=== PATIENT | female | born 1995 | race Caucasian/White ===

== ENCOUNTER 2020-11-08 10:00 | Outpatient (CLI) | payer OTHER ==
[2020-11-08] MEDS ORDERED: LACTATED RINGERS 1,000 ML IV SCH (11:00)
[2020-11-08 11:10] VITALS: BP 126/81; RESP 16; TEMP 96.6
[2020-11-08 12:10] VITALS: PULSE 100
--- NOTE | 2020-12-14 08:01 | P.MSEPDOC ---
Presenting Problems - Arrival Data Date of Arrival on Unit: 11/08/20 Time of Arrival on Unit: 10:00 Mode of Transport: Ambulatory - Complaint OB-Reason for Admission/Chief Complaint: Observation/Evaluation Comment: Brown discharge and cramping yesterday Medical History - Information : 1 Para: 0 - Gestational Age Gestational Age by YOLANDE (wks/days): 34 Weeks and 5 Days Review of Systems - Review of Systems Constitutional: No problems Breast: No problems ENT: No problems Cardiovascular: No problems Respiratory: No problems Gastrointestinal: No problems Genitourinary: No problems Musculoskeletal: No problems Neurological: No problems Skin: No problems Vital Signs - Temperature Temperature: 96.6 F Temperature Source: Temporal Artery Scan - Pulse Right Brachial Pulse Rate: 100 Pulse Assessment Method: Automatic Cuff - Respirations Respiratory Rate: 16 Oxygen Delivery Method: Room Air - Blood Pressure Right Arm Sitting Blood Pressure: 126/81 Blood Pressure Mean: 96 Blood Pressure Source: Automatic Cuff Medical Screen Scoring (Pre) - Cervical Exam Dilation: 0 cm = 0 Membranes: Intact - Uterine Contractions Frequency: < 36 weeks = 6 - Maternal Vital Signs Maternal Temperature: N/A Maternal Blood Pressure: N/A Signs of Preeclampsia: N/A Maternal Respirations: N/A - Maternal Trauma Maternal Trauma: N/A - Assessment - Baby A Baseline FHR: 140 Heart Rate - NICHD Category: Category I (Normal) = 0 NST: Reactive Position: N/A Station: N/A - Total Score - Baby A Total Score - Baby A: 6 - Total Score - Baby B Total Score - Baby B: 6 - Total Score - Baby C Total Score - Baby C: 6 - Level of Risk - Baby A Level of Risk - Baby A: Medium (6-9) - Level of Risk - Baby B Level of Risk - Baby B: Medium (6-9) - Level of Risk - Baby C Level of Risk - Baby C: Medium (6-9) Physician Notification (Pre) - Physician Notified Physician Notified Date: 11/08/20 Physician Notified Time: 10:45 New Order Received: Yes - Notification Comment Comment: Lily Kennedy, advsd , 34 5/7, c/o brown discharge yesterday with. cramping and more discharge today. Sterile spec exam, no discharge noted, FFN collected,. SVE closed, 50%, firm, contractions on monitor q2-3 min, pt denies pain or feeling. contractions. States to infuse 1L LR and send FFN, if FFN neg, pt may be discharge home. Medical Screen Scoring (Post) - Uterine Contractions Frequency: > 5 minutes apart = 1 - Maternal Vital Signs Maternal Temperature: N/A Maternal Blood Pressure: N/A Signs of Preeclampsia: N/A Maternal Respirations: N/A - Pain Assessment Pain Scale Used: Numeric (1 - 10) Pain Intensity: 0 - Maternal Trauma Maternal Trauma: N/A - Assessment - Baby A Heart Rate: 140 Heart Rate - NICHD Category: Category I (Normal) = 0 NST: Reactive Position: N/A Station: N/A - Total Score Total Score - Baby A: 1 Total Score - Baby B: 1 Total Score - Baby C: 1 - Post Treatment Level of Risk Post Treatment Level of Risk - Baby A: Low (0-5) Post Treatment Level of Risk - Baby B: Low (0-5) Post Treatment Level of Risk - Baby C: Low (0-5) Physician Notification (Post) - Notification Comment Comment: Order per Dr. Bautista to d/c pt to home if FFN NEGATIVE. FFN NEGATIVE result recieved. Disposition - Disposition OB Disposition: Physician follow up in office, Discharge to home Discharge Date: 11/08/20 Discharge Time: 12:04 I agree with the RN Medical Screening Exam: Yes Case reviewed; plan agreed upon as documented in EMR&OBIX.: Yes Comments: Patient was neither seen nor examined by me Diagnosis: FALSE LABOR BEFORE 37 COMPLETED WEEKS OF GEST, THIRD TRI
== END 2020-11-08 12:04 | disposition home or self-care (01) ==
LOC: FBPOP 10:00
PROVIDERS: ATTEND Obstetrics & Gynecology
DX: O47.03 False labor before 37 completed weeks of gestation, third trimester (principal); Z3A.34 34 weeks gestation of pregnancy
CPT/HCPCS: 59025; 82731; 96360; 99214

== ENCOUNTER 2020-12-13 06:07 | Inpatient (IN) | payer OTHER ==
[2020-12-13] MEDS ORDERED: TERBUTALINE 1 MG/ML VIAL SQ PRN (06:20)
[2020-12-13] MEDS ORDERED: LIDOCAINE 0.5% (PF) 5 MG/ML (50 ML SDV) SQ PRN (06:20)
[2020-12-13] MEDS ORDERED: METHYLERGONOVINE 0.2 MG/ML 1 ML AMP IM PRN (06:20)
[2020-12-13] MEDS ORDERED: OXYTOCIN 10 UNIT/ML 1 ML VIAL IM PRN (06:20)
[2020-12-13] MEDS ORDERED: CARBOPROST TROMETHAMINE 250 MCG/ML 1 ML AMP IM PRN (06:20)
[2020-12-13] MEDS: LACTATED RINGERS 1,000 ML IV SCH ×3 (06:29→19:14)
[2020-12-13] MEDS ORDERED: LACTATED RINGERS 1,000 ML IV SCH (06:30)
[2020-12-13] MEDS ORDERED: OXYTOCIN 30 UNITS/500 ML NS 30 UNIT in SALINE 1 500ML.BAG IV SCH (06:30)
[2020-12-13 06:36] LABS: Basophils # (A) 0.1 k/uL (0-0.2); Basophils % (A) 0 %; Eosinophils # (A) 0.2 k/uL (0-0.7); Eosinophils % (A) 1 %; HGB 13.6 gm/dL (11.4-16.0); Lymphocytes # (A) 1.9 k/uL (1.0-4.8); Lymphocytes % (A) 16 %; MCH 31.1 pg (25.0-35.0); MCHC 33.9 g/dL (31.0-37.0); MCV 91.7 fL (80.0-100.0); Mean Platelet Volume 7.5; Monocytes # (A) 0.6 k/uL (0-1.0); Monocytes % (A) 5 %; Neutrophils # (A) 9.2 k/uL (1.3-7.7); Neutrophils % (A) 77 %; Platelet Count 282 k/uL (150-450); RBC 4.36 m/uL (3.80-5.40); RDW 14.4 % (11.5-15.5)
--- NOTE | 2020-12-13 07:50 | P.HPOB ---
History of Present Illness H&P Date: 12/13/20 This is a 25-year-old white female 1 para 0 EDC 12/15/2020 at 39-4/7 weeks' gestation. Patient presents today for induction with reasonably favorable cervix. has been unremarkable, group B strep cultures negative, blood type A+, rubella status immune. She admits to occasional mild uterine contractions today. She denies fluid leakage or vaginal bleeding. Fetus is been active throughout the . history significant for blood type A+, rubella status immune. H epatitis B surface antigen, HIV testing, urine culture, gonorrhea and chlamydia cultures, group B strep cultures all negative. One-hour Glucola 135. Past surgical history is negative. Past medical history significant for childhood asthma, no issues as an adult. ALLERGIES none known. Social history patient is , she has never been a smoker, she denies alcohol or drug use. On exam patient is 5 foot 3 inches, 151 pounds, admitting blood pressure 140/93, pulse 101, patient is afebrile. The general physical exam is within normal limits. The chest is clear in all mata. Extremities reveal no edema. Cervix is 3 cm dilated, 80% effaced, anterior, soft, -2 station. Artificial amnior rhexis reveals clear fluid. heart tones are in the 140s with frequent accelerations consistent with reactive NST. Patient is having spontaneous contractions approximately every 2-5 minutes apart better mild. Impression: 39-4/7 weeks intrauterine , here for induction of labor, all signs reassuring. Plan: Continue close maternal and surveillance. Oxytocin per hospital protocol. Anticipating normal spontaneous vaginal delivery. Analgesic options reviewed in detail with the patient. Review of Systems Constitutional: Reports as per HPI Past Medical History Past Medical History: Asthma History of Any Multi-Drug Resistant Organisms: None Reported Past Surgical History: No Surgical Hx Reported Past Anesthesia/Blood Transfusion Reactions: No Reported Reaction Past Psychological History: No Psychological Hx Reported Smoking Status: Never smoker Past Alcohol Use History: None Reported Past Drug Use History: None Reported - Past Family History Father Family Medical History: No Reported History Medications and Allergies Home Medications Medication Instructions Recorded Confirmed Type Aspirin [Adult Low Dose Aspirin EC] 81 mg PO DAILY 11/08/20 12/13/20 History 78/Iron/Folate 1/Dha 1 tab PO ONCE 12/13/20 12/13/20 History [Prenate Dha Softgel] Allergies Allergy/AdvReac Type Severity Reaction Status Date / Time No Known Allergies Allergy Verified 12/13/20 06:19 Exam Vital Signs Temp Pulse Resp BP Pulse Ox 12/13/20 06:18 96.8 F L 101 H 16 140/93 98 Intake and Output 12/12/20 12/13/20 12/13/20 22:59 06:59 14:59 Other: Weight 68.492 kg See dictation under HPI please Results Result Diagrams: 12/13/20 06:28 Abnormal Lab Results - Last 24 Hours (Table) 12/13/20 Range/Units 06:28 WBC 12.0 H (3.8-10.6) k/uL Neutrophils # 9.2 H (1.3-7.7) k/uL Assessment and Plan Assessment: 39-4/7 weeks intrauterine , here for induction of labor, all signs reassuring. Plan: Close maternal and surveillance. Oxytocin per hospital protocol. Analgesic options reviewed with the patient and understanding voiced. Anticipate normal spontaneous vaginal delivery. Time with Patient: Less than 30
[2020-12-13] MEDS ORDERED: fentaNYL (PF) 50 MCG/ML 5 ML AMP ONE (14:01)
[2020-12-13] MEDS ORDERED: SODIUM CHLORIDE 0.9% 100 ML BAG ONE (14:01)
[2020-12-13] MEDS ORDERED: ROPIVACAINE 5MG/ML 20ML VIAL ONE (14:01)
[2020-12-13] MEDS ORDERED: ZOLPIDEM 5 MG TAB PO PRN (21:55)
[2020-12-13] MEDS ORDERED: ACETAMINOPHEN TAB 325 MG TAB PO PRN (21:55)
[2020-12-13] MEDS ORDERED: SIMETHICONE 80 MG CHEWABLE PO PRN (21:55)
[2020-12-13] MEDS ORDERED: LANOLIN CREAM 5 GM TUBE TOPICAL PRN (21:55)
[2020-12-13] MEDS ORDERED: BENZOCAINE/MENTHOL SPRAY 1 GM/SPRAY AEROSOL TOPICAL PRN (21:55)
[2020-12-13] MEDS ORDERED: diphenhydrAMINE 25 MG CAP PO PRN (21:55)
[2020-12-13] MEDS ORDERED: diphenhydrAMINE 50 MG CAP PO PRN (21:55)
[2020-12-13] MEDS ORDERED: diphenhydrAMINE ELIXIR 25 MG/10 ML CUP PO PRN (21:55)
[2020-12-13] MEDS ORDERED: diphenhydrAMINE 50 MG/ML 1 ML VIAL IVP PRN ×2 (21:55)
[2020-12-13] MEDS ORDERED: HYDROcodone/APAP 5-325MG 1 EACH TAB PO PRN (21:55)
[2020-12-13] MEDS ORDERED: HYDROCORTISONE 2.5% RECTAL CREAM 30 GM TUBE RECTAL PRN (21:55)
--- NOTE | 2020-12-13 21:55 | P.PROBDLV ---
Vaginal Delivery Note - . Vaginal Delivery Note: This is a 25-year-old white female 1 para 0 EDC 12/15/2020 at 39-4/7 weeks' gestation. Patient presented for induction with favorable cervix. Fetus is been active throughout the . Blood type A positive, rubella status immune, group B strep cultures negative. Please see dictated history and physical for details. Artificial amniorrhexis revealed clear fluid. Oxytocin was started and titrated per hospital protocol. Epidural was placed per her request. Overall heart rate was very reassuring, however there were periods of late decelerations, most notably after epidural placement. Patient positioning changes were instituted, oxygen per facemask, and Pitocin discontinued. Ultimately the patient became complete dilated at 2054 hours and the second stage of labor began. Patient had excellent maternal expulsive efforts. Perineal body was prepped and draped in usual sterile fashion. 's head delivered occiput anterior and she restituted accordingly. There was a tight nuchal cord 1 that was reduced. The right or anterior shoulder was delivered from underneath the pubic symphysis at which time the oropharynx, nasopharynx, and external nares were all bulb suctioned on the perineal body. Patient was officially delivered of a liveborn female infant at 2134 hours. Umbilical cord was doubly clamped and ligated. Placenta delivered spontaneously, it was inspected and noted to be intact with trivascular cord at 2137 hours. At this time the uterus was massaged. Bleeding was initially brisk, Methergine IM was given 1 with excellent and immediate results. Careful inspection of the cervix, vagina, perineum, periurethral, and perirectal areas revealed a very small midline first-degree laceration easily repaired with a single [id number]-[id number] of 3-0 Rapide suture. Fundus is firm now and in the midline, symmetric and 18 week size. Estimated blood loss 300 mL's. All sponge needle and enhancement counts are correct at the end of the procedure. Infant weighed 7 lbs. 7 oz. or 3390 g. Patient and her were allowed to begin the bonding experience in the LDR.
[2020-12-13] MEDS: IBUPROFEN 600 MG TAB PO PRN (23:35)
--- NOTE | 2020-12-14 07:41 | P.DS ---
Providers Date of admission: 12/13/20 06:07 Expected date of discharge: 12/14/20 Attending physician: Elena Bautista Primary care physician: Stated None Hospital Course: This is a 25-year-old female 1 para 0 EDC 12/15/2020 at 39-4/7 weeks' gestation who presented for induction with favorable cervix. is remarkable for blood type A+, rubella status immune, group B strep cultures negative. Please see dictated history and physical for details. Epidural was placed per patient's request and oxytocin was started and titrated. Patient went on to deliver vaginally a liveborn female infant with scores of 7 and 8 at one and 5 minutes respectively. There was a tight nuchal cord that was reduced, a small first-degree perineal laceration easily repaired, and an estimated blood loss of 300 mL's. weighed 7 lbs. 7 oz. or 3390 g. Please see my dictated delivery note for details. This morning breast-feeding is going well. Pain is well managed with ibuprofen. Patient is voiding, ambulating, passing flatus without difficulty. Vital signs are stable and she has remained afebrile. [place] infant is doing well. Patient is tired, but otherwise judged to be in very good condition for discharge home. She will follow-up with me in the office in 6 weeks. I have reminded her no intercourse, tampons or douching. She will use [id number] ibuprofen products as needed for pain. I've asked her to call with any fevers shakes or chills, foul smelling or copious lochia, with the passage of large blood clots, with any pain not alleviated by nsjw-axl-goikdyt products, or indeed with any concerns. Assessment: Doing well day #1 Patient Condition at Discharge: Good Plan - Discharge Summary New Discharge Prescriptions: No Action Aspirin [Adult Low Dose Aspirin EC] 81 mg PO DAILY 78/Iron/Folate 1/Dha [Prenate Dha Softgel] 1 tab PO ONCE Discharge Medication List Aspirin [Adult Low Dose Aspirin EC] 81 mg PO DAILY 11/08/20 [History] 78/Iron/Folate 1/Dha [Prenate Dha Softgel] 1 tab PO ONCE 12/13/20 [History]
[2020-12-14] MEDS ORDERED: SENNOSIDES-DOCUSATE SODIUM 1 EACH TAB PO SCH (08:00)
[2020-12-14] MEDS: IBUPROFEN 600 MG TAB PO PRN (10:46)
[2020-12-14 16:00] VITALS: BP 126/84; PULSE 110; RESP 18; TEMP 98
== END 2020-12-14 22:30 | disposition home or self-care (01) | DRG 807 ==
LOC: 4FBP 06:07
PROVIDERS: ADMIT Obstetrics & Gynecology; ATTEND Obstetrics & Gynecology
PROC: 10E0XZZ Delivery of Products of Conception, External Approach (ICD-10-PCS; principal; 2020-12-13)
PROC: 0HQ9XZZ Repair Perineum Skin, External Approach (ICD-10-PCS; 2020-12-13)
PROC: 3E033VJ Introduction of Other Hormone into Peripheral Vein, Percutaneous Approach (ICD-10-PCS; 2020-12-13)
PROC: 10907ZC Drainage of Amniotic Fluid, Therapeutic from Products of Conception, Via Natural or Artificial Opening (ICD-10-PCS; 2020-12-13)
PROC: 3E0R3BZ Introduction of Anesthetic Agent into Spinal Canal, Percutaneous Approach (ICD-10-PCS; 2020-12-13)
DX: O69.1XX0 Labor and delivery complicated by cord around neck, with compression, not applicable or unspecified (principal); Z37.0 Single live birth; O76 Abnormality in fetal heart rate and rhythm complicating labor and delivery; O70.0 First degree perineal laceration during delivery; O99.52 Diseases of the respiratory system complicating childbirth; J45.909 Unspecified asthma, uncomplicated; Z3A.39 39 weeks gestation of pregnancy; Z79.82 Long term (current) use of aspirin; Z79.899 Other long term (current) drug therapy
CPT/HCPCS: 85025; 86850; 86900; 86901

== ENCOUNTER 2023-01-31 08:01 | Observation (INO) | payer OTHER ==
[2023-01-31] MEDS ORDERED: KETOROLAC 15 MG/ML 1 ML VIAL IVP STA (08:58)
[2023-01-31] MEDS ORDERED: BUTORPHANOL 1 MG/ML 1 ML VIAL IV ONE (09:09)
[2023-01-31] MEDS: LACTATED RINGERS 1,000 ML IV ONE ×2 (09:28→10:15)
[2023-01-31 09:31] LABS: Basophils % (A) 0 %; Eosinophils % (A) 0 %; HCT 30.9 % (34.0-46.0); HGB 10.5 gm/dL (11.4-16.0); Lymphocytes # (A) 0.7 k/uL (1.0-4.8); Lymphocytes % (A) 5 %; MCH 28.5 pg (25.0-35.0); MCV 83.8 fL (80.0-100.0); Mean Platelet Volume 7.7; Monocytes # (A) 0.3 k/uL (0-1.0); Monocytes % (A) 2 %; Neutrophils # (A) 12.9 k/uL (1.3-7.7); Neutrophils % (A) 92 %; Platelet Count 343 k/uL (150-450); Poikilocytosis Slight; RBC 3.69 m/uL (3.80-5.40); RDW 14.1 % (11.5-15.5); WBC 14.1 k/uL (3.8-10.6)
[2023-01-31 09:40] LABS: ALT 14 U/L (4-34); AST 20 U/L (14-36); African American GFR (CKD) >90 (>60 ml/min/1.73 sqM); Albumin 3.3 g/dL (3.5-5.0); Alkaline Phosphatase 121 U/L (38-126); Anion Gap 8 mmol/L; Blood Urea Nitrogen 9 mg/dL (7-17); Calcium 8.7 mg/dL (8.4-10.2); Carbon Dioxide 22 mmol/L (22-30); Chloride 104 mmol/L (98-107); Glucose 100 mg/dL (74-99); Non-African American GFR(CKD) >90 (>60 ml/min/1.73 sqM); Potassium 4.2 mmol/L (3.5-5.1); Sodium 134 mmol/L (137-145); Total Bilirubin 0.4 mg/dL (0.2-1.3); Total Protein 6.2 g/dL (6.3-8.2)
[2023-01-31 09:46] LABS: Appearance,Urine Cloudy (Clear); Bacteria,Urine Rare /hpf; Bilirubin,Urine Negative (Negative); Blood,Urine Small (Negative); Color,Urine Yellow; Glucose,Urine (UA) Negative (Negative); Ketones,Urine 2+ (Negative); Leukocyte Esterase,Urine Large (Negative); Mucus,Urine Rare /hpf; Nitrite,Urine Negative (Negative); PH, Urine 6.5 (5.0-8.0); Protein,Urine Trace (Negative); RBC,Urine 39 /hpf (0-5); Specific Gravity,Urine 1.016 (1.001-1.035); Squamous Epithelial Cell,Urine 11 /hpf (0-4); Urobilinogen,Urine <2.0 mg/dL (<2.0); WBC,Urine 5 /hpf (0-5)
[2023-01-31] MEDS ORDERED: Acetaminophen-Codeine 300-30mg TAB PO STA (10:42)
[2023-01-31] MEDS ORDERED: ACETAMINOPHEN TAB 500 MG TAB PO STA (10:43)
--- NOTE | 2023-01-31 10:54 | US ---
EXAMINATION TYPE: US kidneys/renal and bladder DATE OF EXAM: 01/31/2023 COMPARISON: NONE CLINICAL HISTORY: severe lt upper quad. pain. 33 weeks gest. Severe left upper quadrant pain. Patie nt is 33 weeks . Left kidney scanned first. EXAM MEASUREMENTS: Right Kidney: 11.5 x 6.0 x 5.8 cm Left Kidney: 11.1 x 5.6 x 6.7 cm Right Kidney: Hydronephrosis seen. Hyperechoic focus seen lower pole: 0.3 x 0.5 x 0.4 cm. Left Kidney: Hydronephrosis seen. Hyperechoic focus seen lower pole: 0.8 x 0.4 x 0.4 cm. Bladder: Not well seen, not fully distended. Unable to properly evaluate. Bilateral Jets seen: No. IMPRESSION: There is bilateral mild/moderate hydronephrosis with bilateral nephrolithiasis.
[2023-01-31] MEDS: LACTATED RINGERS 1,000 ML IV SCH ×2 (12:39→15:01)
[2023-01-31] MEDS ORDERED: hydrOXYzine HCL 50 MG/ML 1 ML VIAL IM PRN (14:18)
[2023-01-31] MEDS ORDERED: HYDROmorphone PCA 10 MG/50 ML BAG IV PRN (16:39)
[2023-01-31] MEDS ORDERED: NALOXONE 0.4 MG/ML 1 ML VIAL IV PRN (16:39)
[2023-02-01] MEDS: LACTATED RINGERS 1,000 ML IV SCH ×2 (00:27→07:10)
[2023-02-01 03:30] VITALS: RESP 17
[2023-02-01 07:42] VITALS: BP 108/69; PULSE 112; TEMP 98.1
--- NOTE | 2023-02-01 09:45 | P.GSCN ---
History of Present Illness Consult date: 02/01/23 History of present illness: Pleasant 27-year-old female 2 para 1, 3 33 weeks . She presented with severe left flank pain. Dr. Bautista ordered an ultrasound identifying bilateral hydronephrosis. There are also apparent stones in each kidney, small. The patient was admitted for pain control. She had IV fluids. This is her first stone. She passed a stone early this morning. She is feeling much better. No family history of stones. There is no fever. The right-sided hydronephrosis is probably related. Review of Systems All systems: negative - Constitutional Denies fever, Denies weight loss - EENT Eyes: denies blurred vision Ears, nose, mouth and throat: Denies dysphagia - Cardiovascular Denies chest pain, Denies shortness of breath - Respiratory Denies cough, Denies 7 - Gastrointestinal Reports as per HPI - Genitourinary Genitourinary: Denies dysuria, Denies hematuria - Integumentary Denies rash, Denies unusual bruising - Neurological Denies headaches, Denies syncope - Hematologic/Lymphatic Denies easy bleeding, Denies easy bruising Past Medical History Past Medical History: Asthma History of Any Multi-Drug Resistant Organisms: None Reported Past Surgical History: No Surgical Hx Reported Past Anesthesia/Blood Transfusion Reactions: No Reported Reaction Past Psychological History: No Psychological Hx Reported Smoking Status: Never smoker Past Alcohol Use History: None Reported Past Drug Use History: None Reported - Past Family History Father Family Medical History: No Reported History Medications and Allergies Home Medications Medication Instructions Recorded Confirmed Type Pedi Multivit No.25/Folic Acid 1 tab PO DAILY 01/31/23 01/31/23 History [Flintstones Multivit Chew Tab] Allergies Allergy/AdvReac Type Severity Reaction Status Date / Time No Known Allergies Allergy Verified 01/31/23 08:27 Surgical - Exam Vital Signs Temp Pulse Resp BP Pulse Ox 97.8 F 116 H 18 114/66 98 01/31/23 18:00 01/31/23 18:00 01/31/23 18:00 01/31/23 18:00 01/31/23 18:00 - General well developed, well nourished, no distress - Eyes normal ocular movement, no icteric - ENT no hearing loss, no congestion - Neck no masses, trachea midline - Respiratory normal respiratory effort, clear to auscultation - Abdomen 33 weeks . Nontender flank Abdomen: soft, non tender, no guarding, no rigid, no rebound - Integumentary no rash, no abnormal pigmentation - Neurologic no disoriented, no combative - Psychiatric oriented to time, oriented to person, oriented to place, speech is normal, memory intact Results - Labs 01/31/23 09:15 01/31/23 09:15 Abnormal Lab Results - Last 24 Hours (Table) 01/31/23 Range/Units 09:15 Urine Appearance Cloudy H (Clear) Urine Protein Trace H (Negative) Urine Ketones 2+ H (Negative) Urine Blood Small H (Negative) Ur Leukocyte Esterase Large H (Negative) Urine RBC 39 H (0-5) /hpf Ur Squamous Epith Cells 11 H (0-4) /hpf Urine Bacteria Rare H (None) /hpf Urine Mucus Rare H (None) /hpf - Imaging US - abdomen: report reviewed Assessment and Plan Assessment: Impression: Left ureteral calculus, passed bilateral renal stones. Active . Recommendations: Nothing a urologic needs to be done at this point in time. After she delivers her baby she should follow-up in our office further evaluation of the remaining stones and clarification as to treatment of these.
--- NOTE | 2023-02-01 10:19 | P.DS ---
Providers Date of admission: 01/31/23 18:00 Expected date of discharge: 02/01/23 Attending physician: Elena Bautista Consults: 01/31/23 16:33 Consult Physician Urgent Consulting Provider: Chico Saldana Consult Reason/Comments: kidney stones bilaterally, 33 2/7 week preg. pain Do you want consulting provider notified?: Yes Primary care physician: Stated None - Discharge Diagnosis(es) (1) 33 weeks gestation of Current Visit: Yes Status: Acute (2) Renal calculi Current Visit: Yes Status: Acute (3) Abdominal pain affecting Current Visit: Yes Status: Acute Hospital Course: This is a 27-year-old 2 para 1 woman who is admitted for observation on 01/31/2023 due to severe upper abdominal pain and findings of bilateral kidney stones and hydronephrosis. Following admission she underwent aggressive fluid rehydration and pain management. She did ultimately pass a large stones spontaneously and had complete resolution of her symptoms. She had occasional mild uterine contractions but no evidence of labor. White blood cell count was normal and she was afebrile with no evidence of coexisting pyelonephritis. She did have a urology consultation after she passed the kidney stone and they recommend supportive care and follow-up as indicated. Patient Condition at Discharge: Good Plan - Discharge Summary New Discharge Prescriptions: No Action Pedi Multivit No.25/Folic Acid [Flintstones Multivit Chew Tab] 1 tab PO DAILY Discharge Medication List Pedi Multivit No.25/Folic Acid [Flintstones Multivit Chew Tab] 1 tab PO DAILY 01/31/23 [History] Follow up Appointment(s)/Referral(s): Elena Bautista MD [STAFF PHYSICIAN] - 1 Week Activity/Diet/Wound Care/Special Instructions: Follow-up in the office in 1 week. May use [id number] Tylenol as needed for discomfort. Return to labor and delivery with any concerning signs or symptoms including severe abdominal pain, regular uterine contractions, vaginal bleeding, leakage of fluids, decreased movement or fever greater than 100.5. kick counts reviewed. Discharge Disposition: HOME SELF-CARE
== END 2023-02-01 11:30 | disposition home or self-care (01) ==
LOC: FBPOP 08:01 → 4FBP 18:00
PROVIDERS: ADMIT Obstetrics & Gynecology; ATTEND Obstetrics & Gynecology
DX: N13.2 Hydronephrosis with renal and ureteral calculous obstruction (principal); J45.909 Unspecified asthma, uncomplicated; Z3A.33 33 weeks gestation of pregnancy
CPT/HCPCS: 59025; 99214; 96360; 96361; 96372 ×2; 96374; 96375; 36415; 80053; 85025; 81001; 76770; G0378 ×2; J0595; J3410; J1170; 96365

== ENCOUNTER 2023-03-18 06:00 | Inpatient (IN) | payer OTHER ==
[2023-03-18] MEDS ORDERED: TRANEXAMIC ACID IN NACL,ISO-OS 1,000 MG in EMPTY BAG 1 BAG IV PRN (06:20)
[2023-03-18] MEDS ORDERED: TERBUTALINE 1 MG/ML VIAL SQ PRN (06:20)
[2023-03-18] MEDS ORDERED: miSOPROStoL 200 MCG TAB PO PRN (06:20)
[2023-03-18] MEDS ORDERED: LIDOCAINE 0.5% (PF) 5 MG/ML (50 ML SDV) SQ PRN (06:20)
[2023-03-18] MEDS ORDERED: OXYTOCIN 10 UNIT/ML 1 ML VIAL IM PRN (06:20)
[2023-03-18] MEDS ORDERED: METHYLERGONOVINE 0.2 MG/ML 1 ML AMP IM PRN (06:20)
[2023-03-18] MEDS ORDERED: CARBOPROST TROMETHAMINE 250 MCG/ML 1 ML AMP IM PRN (06:20)
[2023-03-18] MEDS ORDERED: OXYTOCIN 30 UNITS/500 ML NS 30 UNIT in SALINE 1 500ML.BAG IV SCH (06:30)
[2023-03-18] MEDS: LACTATED RINGERS 1,000 ML IV SCH ×2 (06:34→16:09)
[2023-03-18 07:04] LABS: Anisocytosis Slight; Basophils % (A) 0 %; Eosinophils # (A) 0.1 k/uL (0-0.7); Eosinophils % (A) 1 %; HGB 10.2 gm/dL (11.4-16.0); Lymphocytes # (A) 1.4 k/uL (1.0-4.8); Lymphocytes % (A) 12 %; MCH 26.3 pg (25.0-35.0); MCHC 32.8 g/dL (31.0-37.0); MCV 80.1 fL (80.0-100.0); Mean Platelet Volume 8.2; Monocytes # (A) 0.5 k/uL (0-1.0); Monocytes % (A) 5 %; Neutrophils % (A) 80 %; Platelet Count 326 k/uL (150-450); Poikilocytosis Slight; RBC 3.87 m/uL (3.80-5.40); RDW 16.1 % (11.5-15.5); WBC 11.2 k/uL (3.8-10.6)
[2023-03-18] MEDS ORDERED: fentaNYL (PF) 50 MCG/ML 5 ML AMP ONE (07:40)
[2023-03-18] MEDS ORDERED: ROPIVACAINE 5 MG/ML 20 ML AMPULE ONE (07:40)
[2023-03-18] MEDS ORDERED: SODIUM CHLORIDE 0.9% 100 ML BAG ONE (07:40)
[2023-03-18 09:15] VITALS: RESP 16
--- NOTE | 2023-03-18 09:17 | P.HPOB ---
History of Present Illness H&P Date: 03/18/23 Chief Complaint: Strong regular uterine contractions This is a 27-year-old female 2 para 1001 EDC 03/19/2023 at 39-6/7 weeks' gestation was initially scheduled for induction, but presented from home with strong regular uterine contractions. Fetus is been active throughout the . She denied fluid leakage or vaginal bleeding. history is significant for blood type A+, rubella status immune. VDRL testing, hepatitis B surface antigen, group B strep cultures, urine culture, gonorrhea and chlamydia cultures all negative. One-hour Glucola within normal limits. Past surgical history is negative. Past medical history significant for asthma. Current medications vitamins daily. ALLERGIES none known. The only history significant for breast cancer, diabetes, atrial septal disorder. Social history patient is , she has never been a smoker, she is employed locally, she denies alcohol or drug use. On exam patient is 5 foot 3 inches, 155 pounds, blood pressure 134/94 in admission. General physical exam is within normal limits. Cervix on admission 6 cm dilated, 80% effaced, -2 station, vertex presentation. Artificial amni orrhexis revealed clear fluid. heart rate consistent with reactive NST. Impression: 39-6/7 weeks intrauterine , active spontaneous labor, all signs reassuring. Plan: Patient is requesting epidural, anesthesia staff aware. Close maternal surveillance. Anticipate normal spontaneous vaginal delivery. Past Medical History Past Medical History: Asthma History of Any Multi-Drug Resistant Organisms: None Reported Past Surgical History: No Surgical Hx Reported Past Anesthesia/Blood Transfusion Reactions: No Reported Reaction Past Psychological History: No Psychological Hx Reported Smoking Status: Never smoker Past Alcohol Use History: None Reported Past Drug Use History: None Reported - Past Family History Father Family Medical History: No Reported History Medications and Allergies Home Medications Medication Instructions Recorded Confirmed Type Pedi Multivit No.25/Folic Acid 1 tab PO DAILY 01/31/23 01/31/23 History [Flintstones Multivit Chew Tab] Allergies Allergy/AdvReac Type Severity Reaction Status Date / Time No Known Allergies Allergy Verified 03/18/23 06:20 Exam Vital Signs Temp Pulse Resp BP Pulse Ox 03/18/23 06:19 97.0 F L 101 H 15 139/94 100 Intake and Output 03/17/23 03/18/23 03/18/23 22:59 06:59 14:59 Other: Weight 70.307 kg See dictation under HPI please Results Result Diagrams: 03/18/23 06:12 Abnormal Lab Results - Last 24 Hours (Table) 03/18/23 Range/Units 06:12 WBC 11.2 H (3.8-10.6) k/uL Hgb 10.2 L (11.4-16.0) gm/dL Hct 31.0 L (34.0-46.0) % RDW 16.1 H (11.5-15.5) % Neutrophils # 9.0 H (1.3-7.7) k/uL Assessment and Plan Assessment: 39-6/7 weeks intrauterine , active spontaneous labor. All signs reassuring. Plan: Close maternal surveillance. Epidural being placed. Anticipate normal spontaneous vaginal delivery. Time with Patient: Less than 30
[2023-03-18] MEDS ORDERED: LANOLIN CREAM 5 GM TUBE TOPICAL PRN (09:19)
[2023-03-18] MEDS ORDERED: diphenhydrAMINE 50 MG/ML 1 ML VIAL IVP PRN ×2 (09:19)
[2023-03-18] MEDS ORDERED: ZOLPIDEM 5 MG TAB PO PRN (09:19)
[2023-03-18] MEDS ORDERED: HYDROCORTISONE 2.5% RECTAL CREAM 30 GM TUBE RECTAL PRN (09:19)
[2023-03-18] MEDS ORDERED: ACETAMINOPHEN TAB 325 MG TAB PO PRN (09:19)
[2023-03-18] MEDS ORDERED: BENZOCAINE/MENTHOL SPRAY 1 GM/SPRAY AEROSOL TOPICAL PRN (09:19)
[2023-03-18] MEDS ORDERED: SIMETHICONE 80 MG CHEWABLE PO PRN (09:19)
[2023-03-18] MEDS ORDERED: diphenhydrAMINE ELIXIR 25 MG/10 ML CUP PO PRN (09:19)
[2023-03-18] MEDS ORDERED: diphenhydrAMINE 50 MG CAP PO PRN (09:19)
[2023-03-18] MEDS ORDERED: diphenhydrAMINE 25 MG CAP PO PRN (09:19)
--- NOTE | 2023-03-18 09:19 | P.PROBDLV ---
Vaginal Delivery Note - . Vaginal Delivery Note: Slit 27-year-old female 2 para 1001 EDC 03/19/2023 at 39-6/7 weeks' gestation who presented from home and strong spontaneous labor. Rupee strep cultures negative. Blood type B positive. Rubella status immune. Please see dictated history and physical for details. Artificial amniorrhexis revealed clear fluid. Epidural was placed. She quickly became completely dilated. Perineal body was prepped and draped in usual sterile fashion. With excellent maternal expulsive efforts and 2 pushes 's head crowned in the aspirate anterior position. She restituted accordingly. There was a nuchal cord that was reduced easily. The right or anterior shoulder was then delivered from underneath the pubic symphysis at which time the oropharynx, nasopharynx, and external nares were all bulb suction. Patient was officially delivered of a liveborn female infant at 0859 hours. Nuchal cord was doubly clamped and ligated, she was handed to waiting nurses for evaluation where scores of 9 and 9 at one and 5 minutes respectively were given. weighs 8 pounds 7.6 ounces or 3845 g. The placenta delivered spontaneously, it was inspected and noted to be intact with trivascular cord at 0901 hrs. At this time careful inspection of the cervix, vagina, perineum, periurethral, perirectal areas revealed a very small first-degree midline laceration at 6:00 repaired with a single rocozt-ff-bafmy suture of repeat. Inch needle and enhancement counts are correct. Total estimated blood loss 200 mL's. She and her are allowed to begin the bonding to parents in the LDR.
[2023-03-18] MEDS: IBUPROFEN 600 MG TAB PO SCH ×2 (13:50→20:05)
[2023-03-18] MEDS: SENNOSIDES-DOCUSATE SODIUM 1 EACH TAB PO SCH (20:06)
[2023-03-19] MEDS: IBUPROFEN 600 MG TAB PO SCH ×2 (03:36→06:31)
[2023-03-19] MEDS: LACTATED RINGERS 1,000 ML IV SCH (03:37)
[2023-03-19] MEDS: SENNOSIDES-DOCUSATE SODIUM 1 EACH TAB PO SCH (07:47)
--- NOTE | 2023-03-19 08:06 | P.DS ---
Providers Date of admission: 03/18/23 06:05 Expected date of discharge: 03/19/23 Attending physician: Elena Bautista Primary care physician: Stated None Hospital Course: This is a 27-year-old female 2 para 1001 EDC 03/19/2023 at 39-6/7 weeks' gestation who presented yesterday in active spontaneous labor from home. Rupee strep cultures negative, blood type A positive, rubella status immune. Please see dictation for details. Patient went on to quickly deliver a liveborn female infant with scores of 9 and 9 at one and 5 minutes respectively. weighed 8 pounds 7.6 ounces, or 3845 g. There was an estimated blood loss of 200 mL, nuchal cord 1, and a small first-degree perineal laceration. Please see dictated delivery note for details. This morning the patient is doing well. She is voiding, and urinating, passing flatus without difficulty. Vital signs are stable and she is afebrile. Fundus is firm and in the midline, symmetric and 18 week size. Extremities are negative for edema. [place] is doing well. Patient is judged in very good condition for discharge home. She will use [id number] Advil or Aleve, or pain. She will call with any fevers shakes or chills, foul smelling or copious lochia, with the passage of large blood clots, with any pain not alleviated by [id number] products, or indeed with any concerns. We have briefly discussed contraceptive options and we will discuss this further in the office. Assessment: Doing well day #1 Patient Condition at Discharge: Good Plan - Discharge Summary New Discharge Prescriptions: No Action Pedi Multivit No.25/Folic Acid [Flintstones Multivit Chew Tab] 1 tab PO DAILY Discharge Medication List Pedi Multivit No.25/Folic Acid [Flintstones Multivit Chew Tab] 1 tab PO DAILY 01/31/23 [History]
[2023-03-19 08:21] VITALS: BP 120/89; PULSE 85; TEMP 97.9
== END 2023-03-19 10:33 | disposition still patient (30) | DRG 807 ==
LOC: 4FBP 06:05
PROVIDERS: ADMIT Obstetrics & Gynecology; ATTEND Obstetrics & Gynecology
PROC: 10E0XZZ Delivery of Products of Conception, External Approach (ICD-10-PCS; principal; 2023-03-18)
PROC: 0HQ9XZZ Repair Perineum Skin, External Approach (ICD-10-PCS; 2023-03-18)
DX: O69.81X0 Labor and delivery complicated by cord around neck, without compression, not applicable or unspecified (principal); Z37.0 Single live birth; O70.0 First degree perineal laceration during delivery; J45.909 Unspecified asthma, uncomplicated; O99.52 Diseases of the respiratory system complicating childbirth; O24.92 Unspecified diabetes mellitus in childbirth; Z3A.39 39 weeks gestation of pregnancy; Z85.3 Personal history of malignant neoplasm of breast
CPT/HCPCS: 85025; 86850; 86900; 86901